=== PATIENT | female | born 1970 | race Caucasian/White ===

== ENCOUNTER 2018-07-15 15:12 | Inpatient (IN) | payer OTHER ==
--- NOTE | 2018-07-15 15:16 | PDOC ---
Rapid Medical Evaluation Time Seen by Provider: 07/15/18 15:15 Medical Evaluation: Allergies Allergy/AdvReac Type Severity Reaction Status Date / Time No Known Allergies Allergy Verified 11/26/14 10:03 07/15/18 15:15 I have performed a brief in-person evaluation of this patient. The patient presents with a chief complaint of:dizziness w/ chest discomfort today. No h/o same. Denies pmhx Pertinent physical exam findings:Tachy to 114, clear chest/lungs otherwise I have ordered the following:ekg/cxr/labs The patient will proceed to the ED for further evaluation 07/15/18 15:29 Discharge Disposition - Diagnosis Dizziness - Discharge Dispostion Condition at time of disposition: Stable - Referrals Referrals: Boyd William [Primary Care Provider] - - Patient Instructions - Post Discharge Activity
[2018-07-15 15:20] VITALS: BMI 42.5
[2018-07-15 15:58] LABS: BASO % 0.6 % (0-2.0); EOS % 0.6 % (0-4.5); HEMATOCRIT 37.9 % (32.4-45.2); HEMOGLOBIN 12.8 GM/dL (10.7-15.3); LYMPH % 15.5 % (8-40); MCH 25.6 pg (25.7-33.7); MCHC 33.8 g/dl (32.0-36.0); MEAN CELL VOLUME 75.7 fl (80-96); MEAN PLT VOLUME 9.3 fl (7.5-11.1); MONO % 6.2 % (3.8-10.2); NEUT % 77.1 % (42.8-82.8); PLATELET COUNT 312 K/MM3 (134-434); RBC 5.01 M/mm3 (3.60-5.2); RDW 15.5 % (11.6-15.6); WHITE BLOOD COUNT 9.9 K/mm3 (4.0-10.0)
[2018-07-15 16:06] LABS: URINE APPEARANCE CLEAR; URINE BILIRUBIN NEGATIVE (<2.0 mg/dL); URINE COLOR STRAW; URINE GLUCOSE (UA) NEGATIVE (NEGATIVE); URINE KETONE NEGATIVE (NEGATIVE); URINE LEUK ESTERASE NEGATIVE (NEGATIVE); URINE NITRITE NEGATIVE (NEGATIVE); URINE PROTEIN NEGATIVE (NEGATIVE); URINE UROBILINOGEN NEGATIVE mg/dL (0.2-1.0)
[2018-07-15 16:07] LABS: HCG,QUALITATIVE URINE Negative
[2018-07-15 16:16] LABS: ALBUMIN 3.5 g/dl (3.4-5.0); ALK PHOS 97 U/L (45-117); ANION GAP 11 MMOL/L (8-16); BILIRUBIN,TOTAL 0.4 mg/dL (0.2-1); BLOOD UREA NITROGEN 7 mg/dL (7-18); CALCIUM 8.2 mg/dL (8.5-10.1); CHLORIDE 105 mmol/L (98-107); CO2 22 mmol/L (21-32); CREATININE 1.1 mg/dL (0.55-1.3); GLUCOSE,RANDOM 140 mg/dL (74-106); POTASSIUM 3.7 mmol/L (3.5-5.1); SGOT/AST 15 U/L (15-37); SGPT/ALT 21 U/L (13-61); SODIUM 138 mmol/L (136-145); TOT PROT 7.1 g/dl (6.4-8.2)
--- NOTE | 2018-07-15 16:17 | PDOC ---
History of Present Illness - General Chief Complaint: Lightheaded Stated Complaint: Lightheaded/CHEST PAIN Time Seen by Provider: 07/15/18 15:15 History Source: Patient Exam Limitations: No Limitations - History of Present Illness Initial Comments: 07/15/18 16:23 48f with remote pmh of asthma and recent left ankle sprain presents to the ED after sensation of heaviness in the face and chest that started suddenly 2 hours ago. Never had this before. Denies chest pain, headache, change in vision, shortness of breath, hemoptysis , recent surgery, no h/o malignancy or being recently bedridden 07/15/18 16:28 Past History - Past Medical History Allergies/Adverse Reactions: Allergies Allergy/AdvReac Type Severity Reaction Status Date / Time No Known Allergies Allergy Verified 11/26/14 10:03 Home Medications: Ambulatory Orders NK [No Known Home Medication] 07/15/18 COPD: No Disorders: No Kidney Stones: No - Immunization History Immunization Up to Date: No - Suicide/Smoking/Psychosocial Hx Smoking Status: No Smoking History: Never smoked Have you smoked in the past 12 months: No Number of Cigarettes Smoked Daily: 0 Information on smoking cessation initiated: No Hx Alcohol Use: No Drug/Substance Use Hx: No Review of Systems - Review of Systems Able to Perform ROS?: Yes Is the patient limited R[place]an proficient: No Constitutional: No: Symptoms Reported HEENTM: No: Symptoms Reported Respiratory: No: Symptoms reported Cardiac (ROS): No: Symptoms Reported ABD/GI: No: Symptoms Reported : No: Symptoms Reported Musculoskeletal: No: Symptoms Reported Integumentary: No: Symptoms Reported Neurological: No: Symptoms reported *Physical Exam - Vital Signs Last Vital Signs Temp Pulse Resp BP Pulse Ox 97.9 F 114 H 18 139/83 98 07/15/18 15:15 07/15/18 15:15 07/15/18 15:15 07/15/18 15:15 07/15/18 15:15 - Physical Exam General Appearance: Yes: Nourished, Appropriately Dressed. No: Apparent Distress HEENT: positive: EOMI, NATHAN, Normal ENT Inspection Respiratory/Chest: positive: Lungs Clear, Normal Breath Sounds. negative: Chest Tender, Respiratory Distress Cardiovascular: positive: Regular Rhythm, S1, S2, Tachycardia Female Pelvic Exam: positive: normal external exam Gastrointestinal/Abdominal: positive: Normal Bowel Sounds, Flat, Soft. negative : Tender Musculoskeletal: positive: Normal Inspection, CVA Tenderness Extremity: positive: Normal Capillary Refill, Normal Inspection, Normal Range of Motion Integumentary: positive: Normal Color, Dry, Warm Neurologic: positive: Fully Oriented, Alert, Normal Mood/Affect, Normal Response , Motor Strength 5/5 Moderate Sedation - Procedure Monitoring Vital Signs: Procedure Monitoring Vital Signs Temperature 97.9 F 07/15/18 15:15 Pulse Rate 114 H 07/15/18 15:15 Respiratory Rate 18 07/15/18 15:15 Blood Pressure 139/83 07/15/18 15:15 O2 Sat by Pulse Oximetry (%) 98 07/15/18 15:15 ED Treatment Course - LABORATORY CBC & Chemistry Diagram: 07/15/18 15:32 07/15/18 15:32 - ADDITIONAL ORDERS Additional order review: Laboratory Results 07/15/18 07/15/18 15:32 15:29 Sodium 138 Potassium 3.7 Chloride 105 Carbon Dioxide 22 Anion Gap 11 BUN 7 Creatinine 1.1 Creat Clearance w eGFR 53.24 Random Glucose 140 H Calcium 8.2 L Total Bilirubin 0.4 AST 15 ALT 21 Alkaline Phosphatase 97 Creatine Kinase 124 Troponin I < 0.02 Total Protein 7.1 Albumin 3.5 Urine HCG, Qual Negative 07/15/18 15:32 RBC 5.01 MCV 75.7 L MCHC 33.8 RDW 15.5 D MPV 9.3 Neutrophils % 77.1 Lymphocytes % 15.5 D Monocytes % 6.2 Eosinophils % 0.6 Basophils % 0.6 Medical Decision Making - Medical Decision Making 07/15/18 16:40 48f with tachycardia and feeling of heaviness in the chest PE vs atypical chest pain/NM vs BPPV Well's score for PE 1.5. *DC/Admit/Observation/Transfer Diagnosis at time of Disposition: Dizziness - Discharge Dispostion Condition at time of disposition: Stable - Referrals Referrals: Boyd William [Primary Care Provider] - - Patient Instructions - Post Discharge Activity
[2018-07-15] MEDS ORDERED: SODIUM CHLORIDE 1,000 ML IV STA (17:40)
--- NOTE | 2018-07-15 18:04 | PDOC ---
Attending Attestation - Resident Resident Name: Maurice Castañeda - ED Attending Attestation I have performed the following: I have examined & evaluated the patient, The case was reviewed & discussed with the resident, I agree w/resident's findings & plan, Exceptions are as noted - HPI HPI: 07/15/18 18:52 The patient is a 48 year old female, with no significant past medical history, who presents to the emergency department with 2 episodes of near syncope. Patient notes associated chest tightness, palpitations and feels like she is "waving from side to side." She describes her symptoms like she is going to pass out. She reports she has had 3 episodes of these symptoms since last night , the first when walking in the supermarket, the second while getting out of the car, the third while walking to the bathroom in the ED. Denies room spinning , headache, stiff neck, focal weakness/numbness, nausea, vomiting, SOB, abd pain , urinary sxs, dysuria, frequency, urgency or hematuria. Allergies: NKDA Primary Care Physician: Dr. William - Physicial Exam PE: 07/15/18 18:54 GENERAL: Awake, alert, and fully oriented, in no acute distress HEAD: No signs of trauma EYES: PERRLA, EOMI, sclera anicteric, conjunctiva clear. No proptosis. ENT: Hearing grossly normal, nares patent, oropharynx clear without exudates. Moist mucosa NECK: Normal ROM, supple, no lymphadenopathy, JVD, or masses LUNGS: Breath sounds equal, clear to auscultation bilaterally. No wheezes, and no crackles HEART: Tachycardic to 110, normal S1 and S2, no murmurs, rubs or gallops ABDOMEN: Soft, nontender, normoactive bowel sounds. No guarding, no rebound. No masses EXTREMITIES: Normal range of motion, no edema. No cords, erythema, or tenderness NEUROLOGICAL: Normal speech, cranial nerves intact, 5/5 strength in all 4 extremities, normal sensation to light touch in all 4 extremities, normal cerebellar exam, normal gait, normal tone SKIN: Warm, Dry, normal turgor, no rashes or lesions noted. - Medical Decision Making 07/15/18 18:57 48yo F presents to the ED with 3 pre-syncopal episodes a/w chest tightness, palpitations. Vitals with tachycardia. Exam wnl. EKG with PACs which may explain palpitations. DDx includes but not limited to arrhythmia vs PE vs thyroid d/o vs ACS. Plan: -labs including tropx2, dimer, TSH -UPT -CXR -IVF -reassess Heart Score/ECG Review #1 07/15/18 18:02 Twelve-lead EKG was performed and reviewed by me. Sinus tachycardia, rate 116. + PACs. No ST elevations. T wave flattening in V3 to V6.
--- NOTE | 2018-07-15 19:36 | PDOC ---
*Physical Exam - Vital Signs Last Vital Signs Temp Pulse Resp BP Pulse Ox 97.9 F 114 H 18 139/83 98 07/15/18 15:15 07/15/18 15:15 07/15/18 15:15 07/15/18 15:15 07/15/18 15:15 ED Treatment Course - LABORATORY CBC & Chemistry Diagram: 07/15/18 15:32 07/15/18 15:32 - ADDITIONAL ORDERS Additional order review: Laboratory Results 07/15/18 07/15/18 07/15/18 18:49 18:00 18:00 D-Dimer 419 Sodium Potassium Chloride Carbon Dioxide Anion Gap BUN Creatinine Creat Clearance w eGFR Random Glucose Calcium Total Bilirubin AST ALT Alkaline Phosphatase Creatine Kinase Troponin I < 0.02 Total Protein Albumin TSH 1.10 Urine Color Urine Appearance Urine pH Ur Specific Mccormick Urine Protein Urine Glucose (UA) Urine Ketones Urine Blood Urine Nitrite Urine Bilirubin Urine Urobilinogen Ur Leukocyte Esterase Urine HCG, Qual 07/15/18 07/15/18 15:32 15:29 D-Dimer Sodium 138 Potassium 3.7 Chloride 105 Carbon Dioxide 22 Anion Gap 11 BUN 7 Creatinine 1.1 Creat Clearance w eGFR 53.24 Random Glucose 140 H Calcium 8.2 L Total Bilirubin 0.4 AST 15 ALT 21 Alkaline Phosphatase 97 Creatine Kinase 124 Troponin I < 0.02 Total Protein 7.1 Albumin 3.5 TSH Urine Color Straw Urine Appearance Clear Urine pH 5.0 Ur Specific Mccormick 1.009 L Urine Protein Negative Urine Glucose (UA) Negative Urine Ketones Negative Urine Blood Negative Urine Nitrite Negative Urine Bilirubin Negative Urine Urobilinogen Negative Ur Leukocyte Esterase Negative Urine HCG, Qual Negative 07/15/18 15:32 RBC 5.01 MCV 75.7 L MCHC 33.8 RDW 15.5 D MPV 9.3 Neutrophils % 77.1 Lymphocytes % 15.5 D Monocytes % 6.2 Eosinophils % 0.6 Basophils % 0.6 - Medications Given in the ED: ED Medications Discontinued Medications Generic Name Dose Route Start Last Admin Trade Name Freq PRN Reason Stop Dose Admin Sodium Chloride 1,000 mls @ 1,000 mls/hr 07/15/18 17:40 07/15/18 18:04 Normal Saline - IV 07/15/18 18:39 1,000 mls/hr ASDIR STA Administration Medical Decision Making - Medical Decision Making 07/15/18 19:37 Mariya Ye is a 48yo woman with no pertinent medical history who presents with tachycardia and feeling of lightheadedness along with feeling of heaviness in her chest and face since yesterday. - Workup has included CBC, chemistry, d-dimer, EKG, trop, TSH - Labs reviewed, unremarkable. D-dimer negative (419), trop negative, TSH 1.10, UA negative - EKG reviewed; sinus tachycardia with PACs, no ST elevations or t-wave changes - Reassessed Ms Ye. Reports she continues to feel lightheaded. States her chest feels tight and heavy, as though she "ran a marathon" after walking a few steps. - Will recheck vitals - Microblog sent to med/surg for tele obs admission given continued symptoms 07/15/18 20:20 - CXR ordered for admission and to evaluate for pulmonary abnormalities or cardiomegaly - Spoke to Dr Laguna for admission; will accept to obs. Requested consults for Dr Michel and Dr Foote - Vitals rechecked. HR now 85. 07/15/18 20:50 - CXR without abnormalities - Waiting for bed upstairs Discussed with Dr Robertson. Tiffany Hardy PGY1 *DC/Admit/Observation/Transfer Diagnosis at time of Disposition: Dizziness - Discharge Dispostion Condition at time of disposition: Stable Decision to Admit order: Yes - Referrals - Patient Instructions - Post Discharge Activity
[2018-07-15] MEDS ORDERED: ACETAMINOPHEN 325 MG TABLET (FP) PO PRN (20:41)
--- NOTE | 2018-07-15 21:16 | HP ---
Admitting History and Physical - Admission History of Present Illness: The patient is a 48 year old female, with no significant past medical history, who presents to the emergency department with 2 episodes of near syncope. Patient notes associated chest tightness, palpitations and feels like she is "waving from side to side." She describes her symptoms like she is going to pass out. She reports she has had 3 episodes of these symptoms since last night , the first when walking in the supermarket, the second while getting out of the car, the third while walking to the bathroom in the ED. Denies room spinning , headache, stiff neck, focal weakness/numbness, nausea, vomiting, SOB, abd pain , urinary sxs, dysuria, frequency, urgency or hematuria. on no meds/ no allergies History Source: Patient Limitations to Obtaining History: No Limitations - Past Medical History Pulmonary: Yes: Asthma. No: O2 Dependent, Previously Intubated ...: No - Smoking History Smoking history: Never smoked Have you smoked in the past 12 months: No Aproximately how many cigarettes per day: 0 - Alcohol/Substance Use Hx Alcohol Use: No - Social History ADL: Independent Home Medications - Allergies Allergies/Adverse Reactions: Allergies Allergy/AdvReac Type Severity Reaction Status Date / Time No Known Allergies Allergy Verified 11/26/14 10:03 - Home Medications Home Medications: Ambulatory Orders NK [No Known Home Medication] 07/15/18 Physical Examination Vital Signs: Vital Signs Temperature 98.0 F 07/15/18 20:10 Pulse Rate 87 07/15/18 20:10 Respiratory Rate 18 07/15/18 15:15 Blood Pressure 121/75 07/15/18 20:10 O2 Sat by Pulse Oximetry (%) 99 07/15/18 20:10 Labs: CBC, BMP 07/15/18 15:32 07/15/18 15:32
[2018-07-15] MEDS: MONTELUKAST NA 10 MG TABLET PO SCH (23:39)
--- NOTE | 2018-07-16 02:24 | HOSP ---
Subjective - Review of Symptoms Subjective: Called by nurse to evaluate EKG. Patient was having increasingly frequent episodes of non-sustained v tach on electronic device monitor. Latest event lasting 10 seconds. Symptomatic with palpitations and SOB. On initial exam markedly tachycardic. Lungs clear. Ordered stat CMP, Phos, Mg, Troponin, repeat EKG. Tachycardia self-resolved during encounter. Vitals stable. Physical Examination Vital Signs: Vital Signs Temperature 98.0 F 07/15/18 20:10 Pulse Rate 87 07/15/18 20:10 Respiratory Rate 18 07/15/18 15:15 Blood Pressure 121/75 07/15/18 20:10 O2 Sat by Pulse Oximetry (%) 98 07/15/18 21:17 Labs: CBC, BMP 07/15/18 15:32 07/15/18 15:32
[2018-07-16 02:51] LABS: ALBUMIN 3.4 g/dl (3.4-5.0); ALK PHOS 93 U/L (45-117); ANION GAP 6 MMOL/L (8-16); BILIRUBIN,TOTAL 0.4 mg/dL (0.2-1); BLOOD UREA NITROGEN 7 mg/dL (7-18); CALCIUM 7.9 mg/dL (8.5-10.1); CHLORIDE 108 mmol/L (98-107); CO2 26 mmol/L (21-32); CREATININE 1.1 mg/dL (0.55-1.3); GLUCOSE,RANDOM 141 mg/dL (74-106); MAGNESIUM 1.8 mg/dL (1.8-2.4); PHOSPHOROUS 3.5 mg/dL (2.5-4.9); POTASSIUM 3.5 mmol/L (3.5-5.1); SGOT/AST 15 U/L (15-37); SGPT/ALT 19 U/L (13-61); SODIUM 141 mmol/L (136-145); TOT PROT 6.8 g/dl (6.4-8.2)
[2018-07-16 06:18] LABS: BASO % 0.8 % (0-2.0); EOS % 1.6 % (0-4.5); HEMATOCRIT 35.8 % (32.4-45.2); HEMOGLOBIN 11.3 GM/dL (10.7-15.3); LYMPH % 20.7 % (8-40); MCH 24.3 pg (25.7-33.7); MCHC 31.6 g/dl (32.0-36.0); MEAN CELL VOLUME 76.8 fl (80-96); MEAN PLT VOLUME 8.7 fl (7.5-11.1); MONO % 6.8 % (3.8-10.2); NEUT % 70.1 % (42.8-82.8); PLATELET COUNT 268 K/MM3 (134-434); RBC 4.66 M/mm3 (3.60-5.2); RDW 15.3 % (11.6-15.6); WHITE BLOOD COUNT 7.6 K/mm3 (4.0-10.0)
[2018-07-16 06:58] LABS: ALBUMIN 3.2 g/dl (3.4-5.0); ALK PHOS 78 U/L (45-117); ANION GAP 7 MMOL/L (8-16); BILIRUBIN,TOTAL 0.4 mg/dL (0.2-1); BLOOD UREA NITROGEN 8 mg/dL (7-18); CALCIUM 8.1 mg/dL (8.5-10.1); CHLORIDE 108 mmol/L (98-107); CHOLESTEROL 181 mg/dL (50-200); CO2 25 mmol/L (21-32); GLUCOSE,RANDOM 109 mg/dL (74-106); HDL CHOLESTEROL 38 mg/dL (40-60); POTASSIUM 4.2 mmol/L (3.5-5.1); SGOT/AST 11 U/L (15-37); SGPT/ALT 18 U/L (13-61); SODIUM 141 mmol/L (136-145); TOT PROT 6.1 g/dl (6.4-8.2); TRIGLYCERIDES 136 mg/dL (0-150)
[2018-07-16] MEDS: ALBUTEROL SO4 2.5/IPRATROPIUM 0.5 INH SOL 3 ML VIAL.NEB. NEB SCH ×4 (08:00→20:04)
--- NOTE | 2018-07-16 09:25 | CON.CARD ---
Consult Consult Specialty:: Cardiology Referred by:: Luz Elena Reason for Consultation:: near syncope - History of Present Illness Chief Complaint: near syncope, chest tightness History of Present Illness: 48F no significant PMH p/w lightheadedness, chest tightness, palpitations. Feels like she is going to pass out, had 3 episodes of these symptoms since last night, first when walking in store, second getting out of the car and third while walking to the bathroom while in the ER. Trop neg x 2, neg d- dimer. Overnight had episode of wide complex tachycardia for >30 seconds, unclear if she was symptomatic at the time, she does not remember but thinks she was getting up to go to the bathroom. Has had intermittent chest tightness and episodes of dizziness and fatigue while inpatient. - Past Medical History Pulmonary: Yes: Asthma. No: O2 Dependent, Previously Intubated ...: No - Alcohol/Substance Use Hx Alcohol Use: No - Smoking History Smoking history: Never smoked Have you smoked in the past 12 months: No Aproximately how many cigarettes per day: 0 - Social History ADL: Independent Home Medications - Allergies Allergies/Adverse Reactions: Allergies Allergy/AdvReac Type Severity Reaction Status Date / Time No Known Allergies Allergy Verified 11/26/14 10:03 - Home Medications Home Medications: Ambulatory Orders NK [No Known Home Medication] 07/15/18 Family Disease History - Family Disease History Family Disease History: Heart Disease: Father Review of Systems - Review of Systems Constitutional: reports: Weakness Eyes: reports: No Symptoms HENT: reports: No Symptoms Neck: reports: No Symptoms Cardiovascular: reports: Chest Pain Respiratory: reports: No Symptoms Gastrointestinal: reports: No Symptoms Genitourinary: reports: No Symptoms Musculoskeletal: reports: No Symptoms Integumentary: reports: No Symptoms Neurological: reports: No Symptoms Endocrine: reports: No Symptoms Hematology/Lymphatic: reports: No Symptoms Psychiatric: reports: No Symptoms Vital Signs: Vital Signs Temperature 98.6 F 07/16/18 04:41 Pulse Rate 90 07/16/18 04:41 Respiratory Rate 18 07/16/18 04:41 Blood Pressure 131/74 07/16/18 04:41 O2 Sat by Pulse Oximetry (%) 98 07/15/18 22:05 Constitutional: Yes: Well Nourished, No Distress, Calm Eyes: Yes: Conjunctiva Clear, EOM Intact HENT: Yes: Atraumatic, Normocephalic Neck: Yes: Supple, Trachea Midline Respiratory: Yes: Regular, CTA Bilaterally Gastrointestinal: Yes: Normal Bowel Sounds, Soft Cardiovascular: Yes: Regular Rate and Rhythm JVD: No Carotid Bruit: No Heart Sounds: Yes: S1, S2 Musculoskeletal: No: Back Pain Extremities: No: Cold Edema: No Peripheral Pulses WNL: No Peripheral Pulses: 2+ Left Carotid, 2+ Right Carotid, 2+ Left Doralis Pedis, 2+ Right Dorsalis Pedis Integumentary: No: Jaundice Neurological: Yes: Alert, Oriented Psychiatric: Yes: Alert, Oriented - Other Data Labs, Other Data: CBC, BMP 07/16/18 05:30 07/16/18 05:30 Troponin, BNP 07/15/18 07/15/18 07/16/18 15:32 18:49 02:15 Troponin I < 0.02 < 0.02 < 0.02 Troponin, BNP 07/15/18 07/15/18 07/16/18 15:32 18:49 02:15 Troponin I < 0.02 < 0.02 < 0.02 Assessment/Plan carotid dopplers: no hemodynamically signfiicant stenosis EKG:sinus tachycardia, PVC Tele: sinus, PVCs, wide complex tachycardia >30 seconds 48F no significant PMH p/w near syncope, chest tightness, wide complex tachycardia on tele Wide complex tachycardia, near syncope, chest tightness - likely ventricular tachycardia vs SVT with aberrancy - trop neg x 2 - echo pending, history/exam not consistent with CHF although EF not known - discussed case with Dr. Topher Castro, EP, [facility], transfer for likely EP study, cardiac cath, cardiac MRI, patient is agreeable to transfer
[2018-07-16] MEDS: ASPIRIN COATED 81 MG TABLET.EC PO SCH (09:31)
--- NOTE | 2018-07-16 11:32 | CON.NEURO ---
Consult Consult Specialty:: Neurology Referred by:: Dr. Laguna Reason for Consultation:: Near Syncope - History of Present Illness Chief Complaint: I felt like I was going to pass out History of Present Illness: 48F no significant PMH p/w lightheadedness, chest tightness, palpitations. Feels like she is going to pass out, had 3 episodes of these symptoms since last night, first when walking in store, second getting out of the car and third while walking to the bathroom while in the ER. Trop neg x 2, neg d- dimer. Overnight had episode of wide complex tachycardia for >30 seconds, unclear if she was symptomatic at the time, she does not remember but thinks she was getting up to go to the bathroom. During 2 of the episodes vision when etienne though she never actually lost consciousness. No urinary incontinence Has had intermittent chest tightness and episodes of dizziness and fatigue while inpatient. - History Source History Provided By: Patient, Medical Record Limitations to Obtaining History: No Limitations - Past Medical History Pulmonary: Yes: Asthma. No: O2 Dependent, Previously Intubated ...: No - Alcohol/Substance Use Hx Alcohol Use: No - Smoking History Smoking history: Never smoked Have you smoked in the past 12 months: No Aproximately how many cigarettes per day: 0 - Social History ADL: Independent Home Medications - Allergies Allergies/Adverse Reactions: Allergies Allergy/AdvReac Type Severity Reaction Status Date / Time No Known Allergies Allergy Verified 11/26/14 10:03 - Home Medications Home Medications: Ambulatory Orders NK [No Known Home Medication] 07/15/18 Family Disease History - Family Disease History Family Disease History: Heart Disease: Father Physical Exam-Neuro Vital Signs: Vital Signs Temperature 98 F 07/16/18 09:30 Pulse Rate 80 07/16/18 09:30 Respiratory Rate 18 07/16/18 09:30 Blood Pressure 121/74 07/16/18 09:30 O2 Sat by Pulse Oximetry (%) 98 07/15/18 22:05 Constitutional: Yes: Obese Labs: CBC, BMP 07/16/18 05:30 07/16/18 05:30 - Neuro Exam Level Of Consciousness: Yes: Alert, Oriented to Person, Oriented to Place, Oriented to Time Eyes: Yes: NATHAN Speech: WNL Cranial Nerves II-XII Intact: Yes DTR's: 2+ Left Bicep, 2+ Right Bicep, 2+ Left Tricep, 2+ Right Tricep, 2+ Left Brachioradialis, 2+ Right Brachioradialis, 2+ Left Achilles, 2+ Right Achilles Babinski: Absent Response to light touch: Normal Motor Strength: 5/5: Left Arm, Right Arm, Left Leg, Right Leg Gait: Deferred (broken foot) Imaging - Results Ultrasound: Report Reviewed (carotid duplex mild placque but no hdsl)
[2018-07-16] MEDS: MOMETASONE FUROATE 110 MCG/IH INHALER IH SCH ×2 (12:00→21:18)
--- NOTE | 2018-07-16 12:57 | EKG ---
Test Reason : Blood Pressure : / mmHG Vent. Rate : 107 BPM Atrial Rate : 107 BPM P-R Int : 136 ms QRS Dur : 072 ms QT Int : 346 ms P-R-T Axes : 040 042 008 degrees QTc Int : 461 ms POOR DATA QUALITY, INTERPRETATION MAY BE ADVERSELY AFFECTED SINUS TACHYCARDIA WITH OCCASIONAL PREMATURE VENTRICULAR COMPLEXES LOW VOLTAGE QRS NONSPECIFIC ST ABNORMALITY ABNORMAL ECG WHEN COMPARED WITH ECG OF 16-JUL-2018 02:20, PREMATURE VENTRICULAR COMPLEXES ARE NOW PRESENT Confirmed by Myron Zavaleta ([id number]) on 07/16/2018 12:56:56 PM Referred By: Confirmed By:Myron Zavaleta
--- NOTE | 2018-07-16 12:57 | EKG ---
Test Reason : Blood Pressure : / mmHG Vent. Rate : 090 BPM Atrial Rate : 090 BPM P-R Int : 112 ms QRS Dur : 076 ms QT Int : 392 ms P-R-T Axes : 051 057 016 degrees QTc Int : 479 ms NORMAL SINUS RHYTHM NORMAL ECG WHEN COMPARED WITH ECG OF 15-JUL-2018 15:17, ABERRANT CONDUCTION IS NO LONGER PRESENT Confirmed by Myron Zavaleta ([id number]) on 07/16/2018 12:56:59 PM Referred By: Confirmed By:Myron Zavaleta
--- NOTE | 2018-07-16 12:58 | EKG ---
Test Reason : Blood Pressure : / mmHG Vent. Rate : 116 BPM Atrial Rate : 116 BPM P-R Int : 118 ms QRS Dur : 082 ms QT Int : 330 ms P-R-T Axes : 041 049 007 degrees QTc Int : 458 ms SINUS TACHYCARDIA WITH PREMATURE ATRIAL COMPLEXES WITH ABERRANT CONDUCTION CANNOT RULE OUT ANTERIOR INFARCT , AGE UNDETERMINED ABNORMAL ECG NO PREVIOUS ECGS AVAILABLE Confirmed by Myron Zavaleta ([id number]) on 07/16/2018 12:58:11 PM Referred By: Confirmed By:Myron Zavaleta
--- NOTE | 2018-07-16 13:18 | ECHO ---
Name: ALEXANDRA RUTHERFORD Exam:Adult Echocardiogram Study Date: 07/16/2018 08:19 AM Age: 48 yrs Reason For Study: SYNCOPE Height: 68 in Weight: 280 lb BSA: 2.4 m2 MMode/2D Measurements & Calculations IVSd: 1.0 cm Ao root diam: 2.6 cm LVIDd: 3.9 cm ACS: 1.9 cm LVIDs: 2.9 cm LVPWd: 1.4 cm EDV(Teich): 66.1 ml LVOT diam: 2.1 cm ESV(Teich): 32.0 ml Doppler Measurements & Calculations Med Peak E' Yoshi: 8.1 cm/sec Lat Peak E' Yoshi: 6.7 cm/sec Procedure A two-dimensional transthoracic echocardiogram with color flow and Doppler was performed. The study w as technically difficult with many images being suboptimal in quality. The patient was in normal sinus r hythm during the exam. Left Ventricle The left ventricle is normal in size. Left ventricular systolic function is normal. Right Ventricle The right ventricle is not well visualized. The right ventricular systolic function is grossly normal . Atria The left atrium is mildly dilated. Right atrial size is normal. Mitral Valve The mitral valve is normal. There is no mitral valve stenosis. There is no mitral regurgitation noted . Tricuspid Valve The tricuspid valve is normal. No tricuspid regurgitation. Aortic Valve The aortic valve is trileaflet. The aortic valve opens well. No hemodynamically significant valvular aortic stenosis. No aortic regurgitation is present. Pulmonic Valve The pulmonic valve is not well visualized. The pulmonic valve is not well seen, but is grossly normal . There is no pulmonic valvular regurgitation. Great Vessels The aortic root is normal size. Pericardium/Pleura There is no pericardial effusion. Interpretation Summary The study was technically difficult with many images being suboptimal in quality. Left ventricular systolic function is normal. The right ventricular systolic function is grossly normal. The left atrium is mildly dilated. The aortic valve opens well. There is no pericardial effusion. MD Dago Reveles 07/16/2018 01:17 PM
[2018-07-16] MEDS ORDERED: MAGNESIUM SULF 50% (8.12 MEQ/2 ML-1 GM VIAL) IVPB ONE (14:15)
--- NOTE | 2018-07-16 14:33 | RAPID ---
Physical Examination Vital Signs: Vital Signs Temperature 98 F 07/16/18 09:30 Pulse Rate 80 07/16/18 09:30 Respiratory Rate 18 07/16/18 09:30 Blood Pressure 121/74 07/16/18 09:30 O2 Sat by Pulse Oximetry (%) 100 07/16/18 09:00 Findings/Remarks: Patient evaluated for 30 second episodes of vtach. Patient admitted to the hospital for dizziness and episodes of vtach. Patient currently being transferred to [facility] for EP study. Patient reports she feels flushed and dizzy. Vtach present for 30 seconds on tele monitor. General: no acute distress, diaphoretic Heart: tachycardic, no JVD noted Pulse: 180, decreased to 140 Tachycardia 2/2 to vtach vs SVT with abberancy - patient currently being transfered to [facility] for EP studies - M.8, ordered 2 gm IV magnesium to bring up Mg - will monitor without medications as to not change EP results - Dr. Agrawal present for rapid, will speak with [facility] Labs: CBC, BMP 07/16/18 05:30 07/16/18 05:30
[2018-07-16] MEDS ORDERED: METOPROLOL TARTRATE 25 MG TABLET (FP) PO SCH (14:45)
[2018-07-16] MEDS: MONTELUKAST NA 10 MG TABLET PO SCH (21:17)
[2018-07-16 23:57] LABS: ANION GAP 8 MMOL/L (8-16); BLOOD UREA NITROGEN 8 mg/dL (7-18); CALCIUM 8.3 mg/dL (8.5-10.1); CHLORIDE 107 mmol/L (98-107); CO2 25 mmol/L (21-32); CREATININE 0.9 mg/dL (0.55-1.3); GLUCOSE,RANDOM 101 mg/dL (74-106); POTASSIUM 3.8 mmol/L (3.5-5.1); SODIUM 140 mmol/L (136-145)
[2018-07-17 07:41] LABS: BASO % 0.3 % (0-2.0); EOS % 2.1 % (0-4.5); HEMATOCRIT 39.6 % (32.4-45.2); HEMOGLOBIN 12.4 GM/dL (10.7-15.3); LYMPH % 28.9 % (8-40); MCH 24.2 pg (25.7-33.7); MCHC 31.4 g/dl (32.0-36.0); MEAN PLT VOLUME 8.9 fl (7.5-11.1); MONO % 6.8 % (3.8-10.2); NEUT % 61.9 % (42.8-82.8); PLATELET COUNT 312 K/MM3 (134-434); RBC 5.14 M/mm3 (3.60-5.2); RDW 15.8 % (11.6-15.6); WHITE BLOOD COUNT 9.8 K/mm3 (4.0-10.0)
[2018-07-17] MEDS: ALBUTEROL SO4 2.5/IPRATROPIUM 0.5 INH SOL 3 ML VIAL.NEB. NEB SCH ×4 (07:56→20:27)
[2018-07-17 08:20] LABS: ANION GAP 8 MMOL/L (8-16); BLOOD UREA NITROGEN 9 mg/dL (7-18); CALCIUM 8.7 mg/dL (8.5-10.1); CHLORIDE 106 mmol/L (98-107); CO2 25 mmol/L (21-32); GLUCOSE,RANDOM 102 mg/dL (74-106); MAGNESIUM 2.4 mg/dL (1.8-2.4); POTASSIUM 4.3 mmol/L (3.5-5.1); SODIUM 139 mmol/L (136-145)
[2018-07-17] MEDS: ASPIRIN COATED 81 MG TABLET.EC PO SCH (09:23)
--- NOTE | 2018-07-17 09:32 | PN ---
Progress Note (short form) - Note Progress Note: Chief Complaint: near syncope, chest tightness s: feels better this morning, fewer episodes of palps Current Medications Acetaminophen (Tylenol -) 650 mg PO Q4H PRN PRN Reason: PAIN LEVEL 1-5 Albuterol/Ipratropium (Duoneb -) 1 amp NEB RQID [facility] Last Admin: 07/17/18 07:56 Dose: 1 amp Aspirin (Ecotrin -) 81 mg PO DAILY [facility] Last Admin: 07/17/18 09:23 Dose: 81 mg Metoprolol Succinate (Toprol Xl -) 50 mg PO BID [facility] Last Admin: 07/17/18 09:23 Dose: 50 mg Mometasone Furoate (Asmanex 110mcg -) 1 puff IH BID [facility] Last Admin: 07/16/18 21:18 Dose: Not Given Montelukast Sodium (Singulair -) 10 mg PO HS [facility] Last Admin: 07/16/18 21:17 Dose: 10 mg Vital Signs: Vital Signs Period Temp Pulse Resp BP Sys/[place] Pulse Ox Last 24 Hr 97.9 F-98.8 F 59-96 18-20 103-132/58-77 100 Constitutional: Yes: Well Nourished, No Distress, Calm Eyes: Yes: Conjunctiva Clear, EOM Intact HENT: Yes: Atraumatic, Normocephalic Neck: Yes: Supple, Trachea Midline Respiratory: Yes: Regular, CTA Bilaterally Gastrointestinal: Yes: Normal Bowel Sounds, Soft Cardiovascular: Yes: Regular Rate and Rhythm JVD: No Carotid Bruit: No Heart Sounds: Yes: S1, S2 Musculoskeletal: No: Back Pain Extremities: No: Cold Edema: No Peripheral Pulses WNL: No Peripheral Pulses: 2+ Left Carotid, 2+ Right Carotid, 2+ Left Doralis Pedis, 2+ Right Dorsalis Pedis Integumentary: No: Jaundice Neurological: Yes: Alert, Oriented Psychiatric: Yes: Alert, Oriented Assessment/Plan carotid dopplers: no hemodynamically signfiicant stenosis EKG:sinus tachycardia, PVC echo 07/2018 tds, LV nl size/function, RV grossly nl, mild LA dilation Tele: sinus, PVCs, ten episodes of wide complex tachycardia 20-30 seconds yesterday afternoon/evening last at 21:15 48F no significant PMH p/w near syncope, chest tightness, wide complex tachycardia on tele Wide complex tachycardia, near syncope, chest tightness - likely ventricular tachycardia vs SVT with aberrancy - trop neg x 2 - echo shows nl EF - episodes less frequent with metoprolol succinate 50 mg BID, continue - awaiting transfer to [facility] for likely EP study, cardiac cath, cardiac MRI
--- NOTE | 2018-07-17 15:46 | PN ---
Progress Note (short form) - Note Progress Note: obese female in bed comfortable no reoccurance of palpitaions / or chest discomfort feeling tired / fatigued -- probably 2/2 to BBlocker Vital Signs Period Temp Pulse Resp BP Sys/[place] Pulse Ox Last 24 Hr 97.9 F-98.0 F 59-92 18-20 103-131/55-77 100-100 neck supple heart S1/S2 lungs clear bilat abd obese / soft/ non tender ext no edema Laboratory Last Values WBC 9.8 K/mm3 (4.0-10.0) 07/17/18 07:00 RBC 5.14 M/mm3 (3.60-5.2) 07/17/18 07:00 Hgb 12.4 GM/dL (10.7-15.3) 07/17/18 07:00 Hct 39.6 % (32.4-45.2) 07/17/18 07:00 MCV 77.0 fl (80-96) L 07/17/18 07:00 MCH 24.2 pg (25.7-33.7) L 07/17/18 07:00 MCHC 31.4 g/dl (32.0-36.0) L 07/17/18 07:00 RDW 15.8 % (11.6-15.6) H 07/17/18 07:00 Plt Count 312 K/MM3 (134-434) 07/17/18 07:00 MPV 8.9 fl (7.5-11.1) 07/17/18 07:00 Absolute Neuts (auto) 6.1 K/mm3 (1.5-8.0) 07/17/18 07:00 Neutrophils % 61.9 % (42.8-82.8) 07/17/18 07:00 Lymphocytes % 28.9 % (8-40) D 07/17/18 07:00 Monocytes % 6.8 % (3.8-10.2) 07/17/18 07:00 Eosinophils % 2.1 % (0-4.5) 07/17/18 07:00 Basophils % 0.3 % (0-2.0) 07/17/18 07:00 Nucleated RBC % 0 % (0-0) 07/17/18 07:00 D-Dimer 419 ng/ml (0-500) 07/15/18 18:00 Sodium 139 mmol/L (136-145) 07/17/18 07:00 Potassium 4.3 mmol/L (3.5-5.1) 07/17/18 07:00 Chloride 106 mmol/L (98-107) 07/17/18 07:00 Carbon Dioxide 25 mmol/L (21-32) 07/17/18 07:00 Anion Gap 8 MMOL/L (8-16) 07/17/18 07:00 BUN 9 mg/dL (7-18) 07/17/18 07:00 Creatinine 1.0 mg/dL (0.55-1.3) 07/17/18 07:00 Creat Clearance w eGFR 59.43 (>60) 07/17/18 07:00 Random Glucose 102 mg/dL (74-106) 07/17/18 07:00 Calcium 8.7 mg/dL (8.5-10.1) 07/17/18 07:00 Phosphorus 3.5 mg/dL (2.5-4.9) 07/16/18 02:15 Magnesium 2.4 mg/dL (1.8-2.4) 07/17/18 07:00 Total Bilirubin 0.4 mg/dL (0.2-1) 07/16/18 05:30 AST 11 U/L (15-37) L 07/16/18 05:30 ALT 18 U/L (13-61) 07/16/18 05:30 Alkaline Phosphatase 78 U/L (45-117) 07/16/18 05:30 Creatine Kinase 124 IU/L (26-192) 07/15/18 15:32 Troponin I < 0.02 ng/ml (0.00-0.05) 07/16/18 02:15 Total Protein 6.1 g/dl (6.4-8.2) L 07/16/18 05:30 Albumin 3.2 g/dl (3.4-5.0) L 07/16/18 05:30 Triglycerides 136 mg/dL (0-150) 07/16/18 05:30 Cholesterol 181 mg/dL (50-200) 07/16/18 05:30 Total LDL Cholesterol 127 mg/dL (5-100) H 07/16/18 05:30 HDL Cholesterol 38 mg/dL (40-60) L 07/16/18 05:30 TSH 1.22 uIU/ml (0.358-3.74) 07/16/18 05:30 Free T4 1.11 ng/dl (0.76-1.46) 07/16/18 05:30 Urine Color Straw 07/15/18 15: Urine Appearance Clear 07/15/18 15: Urine pH 5.0 (5.0-8.0) 07/15/18 15: Ur Specific [place] 1.009 (1.010-1.035) L 07/15/18 15:29 Urine Protein Negative (NEGATIVE) 07/15/18: Urine Glucose (UA) Negative (NEGATIVE) 07/15/18 Urine Ketones Negative (NEGATIVE) 07/15/18 Urine Blood Negative (NEGATIVE) 07/15/18 Urine Nitrite Negative (NEGATIVE) 07/15/18: Urine Bilirubin Negative (<2.0 mg/dL) 07/15/18: Urine Urobilinogen Negative mg/dL (0.2-1.0) 07/15/18 15: Ur Leukocyte Esterase Negative (NEGATIVE) 07/15/18 15: Urine HCG, Qual Negative 07/15/18 goal K > 4.2 mag > 2.0 Active Medications Acetaminophen (Tylenol -) 650 mg PO Q4H PRN PRN Reason: PAIN LEVEL 1-5 Albuterol/Ipratropium (Duoneb -) 1 amp NEB RQID [facility] Last Admin: 07/17/18 11:21 Dose: 1 amp Aspirin (Ecotrin -) 81 mg PO DAILY [facility] Last Admin: 07/17/18 09:23 Dose: 81 mg Metoprolol Succinate (Toprol Xl -) 50 mg PO BID [facility] Last Admin: 07/17/18 09:23 Dose: 50 mg Mometasone Furoate (Asmanex 110mcg -) 1 puff IH BID [facility] Last Admin: 07/16/18 21:18 Dose: Not Given Montelukast Sodium (Singulair -) 10 mg PO HS [facility] Last Admin: 07/16/18 21:17 Dose: 10 mg # wide complex tachycardia VTach ? no hx of previous events echo reports Nl per Cardio no events since last night arrangements in place for transfer to [place] --EP discussed with patient / and son - both at bedside at time of visit # Hx of Asthma on nebulizer / inhaled staroids / singulair clinically has been stable on BBlocker # Obesity discussed weight loss dietary changes /
[2018-07-17 19:31] VITALS: BP 115/51; PULSE 84; TEMP 98.2
[2018-07-17] MEDS: MONTELUKAST NA 10 MG TABLET PO SCH (20:41)
== END 2018-07-17 21:30 | disposition short-term general hospital (02) | DRG 309 ==
LOC: JER 15:12 → JERBED 19:46 → OBSVTOIN 20:42 → J4W 22:42
PROVIDERS: ADMIT Family Medicine; ATTEND Family Medicine
DX: I47.2 Ventricular tachycardia (principal); Z68.41 Body mass index [BMI] 40.0-44.9, adult; R55 Syncope and collapse; J45.909 Unspecified asthma, uncomplicated; E66.9 Obesity, unspecified
CPT/HCPCS: 36415; 71046-TC-FY; 80048; 80053; 80061; 81003; 82550; 83721; 83735; 84100; 84439; 84443; 84484; 84703; 85025; 85379; 93005; 93010; 93306-TC; 93880-TC; 94640; 99284-25; G0378; J7030

== ENCOUNTER 2021-06-20 06:10 | Day surgery (SDC) | payer BC ==
[2021-06-14 15:12] VITALS: BMI 43.7
[2021-06-20] MEDS ORDERED: BUPIVACAINE HCL/PF 0.25% (2.5MG/ML) 10 ML VIAL ONE (07:18)
[2021-06-20] MEDS ORDERED: MIDAZOLAM HCL 2 MG/2 ML SINGLE DOSE VIAL ONE (08:01)
[2021-06-20] MEDS ORDERED: SUCCINYLCHOLINE CHLORIDE 200 MG/10 ML SYRINGE ONE (08:04)
[2021-06-20] MEDS ORDERED: ROCURONIUM BROMIDE 50 MG/5 ML SYRINGE ONE (08:04)
[2021-06-20] MEDS ORDERED: PROPOFOL 20 ML ONE (08:04)
[2021-06-20] MEDS ORDERED: NEOSTIGMINE METHYLSULFATE 0.5 MG/1 ML - 10 ML MDV ONE (09:10)
[2021-06-20] MEDS ORDERED: ACETAMINOPHEN 325 MG TABLET (FP) PO PRN (09:27)
[2021-06-20] MEDS ORDERED: HYDROmorphone HCL/PF 1 MG/ML VIAL IVPUSH PRN (09:28)
[2021-06-20] MEDS ORDERED: LACTATED RINGERS SOLUTION 1,000 ML IV SCH (09:30)
[2021-06-20] MEDS: ONDANSETRON 4 MG/2 ML VIAL IVPUSH PRN (09:35)
[2021-06-20] MEDS ORDERED: ACETAMINOPHEN INJECTION 100 ML IVPB ONE (09:45)
[2021-06-20] MEDS ORDERED: ACETAMINOPHEN 1000 MG/100 ML VIAL IVPB ONE ×2 (09:45→11:00)
[2021-06-20 10:28] LABS: CALCIUM 8.8 mg/dl (8.5-10); HEMATOCRIT 39.3 % (32.4-45.2); HEMOGLOBIN 12.8 GM/dl (10.7-15.3); MCH 26.4 pg (25.7-33.7); MCHC 32.4 g/dl (32.0-36.0); MEAN CELL VOLUME 81.6 fl (80-96); MEAN PLT VOLUME 10.1 fl (7.5-11.1); PLATELET COUNT 214 10^3/uL (134-434); RBC 4.82 M/mm3 (3.60-5.2); RDW 13.2 % (11.6-15.6); WHITE BLOOD COUNT 6.9 K/mm3 (4.0-10.8)
[2021-06-20] MEDS: FAMOTIDINE 20 MG/50 ML IVPB 20 MG/50 ML MG IVPB SCH ×2 (11:27→21:04)
[2021-06-20] MEDS: LISINOPRIL 5 MG TABLET PO SCH (11:27)
[2021-06-20] MEDS: CHOLECALCIFEROL (VIT D3) 1,000 UNIT (25 MCG) TABLET PO SCH (11:27)
[2021-06-20] MEDS: SODIUM CHLORIDE 1,000 ML IV SCH (11:32)
[2021-06-20] MEDS ORDERED: ENOXAPARIN NA (PORCINE) 40 MG/0.4 ML DISP.SYRIN SQ ONE (12:00)
[2021-06-20] MEDS ORDERED: ACETAMINOPHEN 1000 MG/100 ML VIAL IVPB PRN (16:00)
[2021-06-20] MEDS: oxyCODONE HCL 5 MG TABLET PO PRN (21:03)
[2021-06-20] MEDS ORDERED: ATORVASTATIN CA 20 MG TABLET (FP) PO SCH (22:00)
[2021-06-21] MEDS: oxyCODONE HCL 5 MG TABLET PO PRN ×2 (03:53→08:23)
[2021-06-21] MEDS: ONDANSETRON 4 MG/2 ML VIAL IVPUSH PRN (03:59)
[2021-06-21 08:24] VITALS: BP 113/57; PULSE 73; TEMP 98
[2021-06-21] MEDS: CHOLECALCIFEROL (VIT D3) 1,000 UNIT (25 MCG) TABLET PO SCH (09:12)
[2021-06-21] MEDS: FAMOTIDINE 20 MG/50 ML IVPB 20 MG/50 ML MG IVPB SCH (09:12)
[2021-06-21] MEDS: LISINOPRIL 5 MG TABLET PO SCH (09:12)
[2021-06-21] MEDS: SODIUM CHLORIDE 1,000 ML IV SCH (09:13)
== END 2021-06-21 11:19 | disposition home or self-care (01) ==
LOC: FASUSAT 06:10 → FM/S 09:11 → FASUSAT 06-21 11:19
PROVIDERS: ATTEND Surgery
PROC: 0DN64ZZ Release Stomach, Percutaneous Endoscopic Approach (ICD-10-PCS; 2021-06-20)
PROC: 0DP64CZ Removal of Extraluminal Device from Stomach, Percutaneous Endoscopic Approach (ICD-10-PCS; principal; 2021-06-20 08:33)
DX: T85.518A Breakdown (mechanical) of other gastrointestinal prosthetic devices, implants and grafts, initial encounter (principal); R13.10 Dysphagia, unspecified; R11.0 Nausea; Y73.3 Surgical instruments, materials and gastroenterology and urology devices (including sutures) associated with adverse incidents; Y93.89 Activity, other specified; Y92.89 Other specified places as the place of occurrence of the external cause; Z98.84 Bariatric surgery status
CPT/HCPCS: 36415; 80048; 82962; 84703; 85027; 88300-TC; 94010; 94760; J0131

== ENCOUNTER 2021-12-25 11:12 | Emergency (ER) | payer BC ==
[2021-12-25 11:35] VITALS: BMI 43.0
[2021-12-25] MEDS ORDERED: BEBTELOVIMAB (EUA) 175 MG/2 ML VIAL IVPUSH ONE (11:37)
[2021-12-25 14:01] VITALS: BP 139/83; PULSE 77; TEMP 98.8
== END 2021-12-25 14:02 | disposition home or self-care (01) ==
LOC: JER 11:12
PROC: 3E033GC Introduction of Other Therapeutic Substance into Peripheral Vein, Percutaneous Approach (ICD-10-PCS; principal; 2021-12-25)
DX: U07.1 COVID-19 (principal)
CPT/HCPCS: 99284-25; Q0222

== ENCOUNTER 2022-08-12 18:20 | Inpatient (IN) | payer BC ==
[2022-08-12 20:47] LABS: EPITHELIAL CELLS FEW /hpf
[2022-08-12] MEDS: LACTATED RINGERS SOLUTION 1,000 ML/1,000 ML INFUS.BAG IV SCH (21:00)
[2022-08-12] MEDS ORDERED: ACETAMINOPHEN 1000 MG/100 ML BAG IVPB ONE (21:09)
[2022-08-12] MEDS ORDERED: ACETAMINOPHEN INJECTION 100 ML IVPB ONE (21:10)
[2022-08-12 21:24] LABS: HEMATOCRIT 43.3 % (32.4-45.2); HEMOGLOBIN 14.8 G/dL (10.7-15.3); MCH 26.2 pg (25.7-33.7); MCHC 34.3 g/dl (32.0-36.0); MEAN CELL VOLUME 76.4 fl (80-96); MEAN PLT VOLUME 9.3 fl (7.5-11.1); PLATELET COUNT 243.7 10^3/uL (134-434); RBC 5.67 10^6/uL (3.60-5.2); RDW 15.2 % (11.6-15.6); WHITE BLOOD COUNT 12.2 10^3/uL (4.0-10.8)
[2022-08-12 21:51] LABS: CALCIUM 9.4 mg/dl (8.5-10)
[2022-08-12 21:57] LABS: CREATININE 1.2 mg/dl (0.55-1.3); TOT PROT 7.1 g/dl (6.4-8.2)
[2022-08-12] MEDS ORDERED: morphine CARPU-JECT 2 MG/1 ML DISP.SYRIN IVPUSH ONE (21:58)
[2022-08-12] MEDS ORDERED: morphine SULFATE 4 MG/ML VIAL ONE (22:00)
[2022-08-13] MEDS ORDERED: DOCUSATE SODIUM 100 MG CAPSULE (FP) PO PRN (01:37)
[2022-08-13] MEDS ORDERED: ONDANSETRON 4 MG/2 ML VIAL IVPB ONE (03:10)
[2022-08-13] MEDS: SODIUM CHLORIDE 1,000 ML IV SCH (03:27)
[2022-08-13 03:42] VITALS: BMI 46.3
[2022-08-13] MEDS ORDERED: TRIMETHOBENZAMIDE HCL 200MG/2ML INJ IM PRN (05:33)
[2022-08-13] MEDS: INSULIN SLIDING SCALE (NOVOLOG) 1 VIAL SQ SCH ×4 (07:08→21:42)
[2022-08-13 09:01] LABS: INR 1.07 (0.83-1.09); PROTHROMBIN TIME (PATIENT) 12.3 SEC (9.7-13.0)
[2022-08-13 09:15] LABS: CALCIUM 9.1 mg/dl (8.5-10); MAGNESIUM 1.9 mg/dL (1.8-2.4); PHOSPHOROUS 4.6 mg/dl (2.5-4.9)
[2022-08-13 09:18] LABS: HEMATOCRIT 38.9 % (32.4-45.2); HEMOGLOBIN 12.8 G/dL (10.7-15.3); MCH 25.3 pg (25.7-33.7); MEAN CELL VOLUME 76.9 fl (80-96); MEAN PLT VOLUME 9.7 fl (7.5-11.1); PLATELET COUNT 228.2 10^3/uL (134-434); RBC 5.06 10^6/uL (3.60-5.2); RDW 15.1 % (11.6-15.6); WHITE BLOOD COUNT 11.6 10^3/uL (4.0-10.8)
[2022-08-13] MEDS ORDERED: LOSARTAN POTASSIUM 25 MG TABLET PO SCH (10:00)
[2022-08-13] MEDS: LISINOPRIL 5 MG TABLET PO SCH (10:08)
[2022-08-13] MEDS: ASPIRIN 81 MG CHEWABLE TABLETS PO SCH (10:08)
[2022-08-13] MEDS: ENOXAPARIN NA (PORCINE) 40 MG/0.4 ML DISP.SYRIN SQ SCH (10:08)
[2022-08-13 12:00] LABS: AMYLASE 48 U/L (25-115); CHOLESTEROL 118 mg/dl (50-200); HDL CHOLESTEROL 28 mg/dl (40-60); LDL CHOLESTEROL (ONLY DFH) 45 mg/dl (5-100); TRIGLYCERIDES 225 mg/dl (0-150)
[2022-08-13] MEDS: CEFTRIAXONE 1 GM in DEXTROSE 5%-WATER - 50 ML IVPB SCH (13:16)
[2022-08-13] MEDS: ROSUVASTATIN CA 20 MG TABLET PO SCH (21:42)
[2022-08-13] MEDS: LACTATED RINGERS SOLUTION 1,000 ML/1,000 ML INFUS.BAG IV SCH (21:43)
[2022-08-14] MEDS ORDERED: ACETAMINOPHEN 325 MG TABLET (FP) PO PRN (01:37)
[2022-08-14] MEDS: SODIUM CHLORIDE 1,000 ML IV SCH (07:02)
[2022-08-14 09:16] LABS: BASO % 0.5 % (0-2.0); EOS % 7.7 % (0-4.5); HEMATOCRIT 39.8 % (32.4-45.2); HEMOGLOBIN 12.8 GM/dL (10.7-15.3); LYMPH % 32.4 % (8-40); MCH 24.7 pg (25.7-33.7); MCHC 32.3 g/dl (32.0-36.0); MEAN CELL VOLUME 76.5 fl (80-96); MEAN PLT VOLUME 9.4 fl (7.5-11.1); MONO % 7.3 % (3.8-10.2); NEUT % 52.1 % (42.8-82.8); PLATELET COUNT 209 10^3/uL (134-434); RDW 14.4 % (11.6-15.6); WHITE BLOOD COUNT 7.8 K/mm3 (4.0-10.0)
[2022-08-14] MEDS: INSULIN SLIDING SCALE (NOVOLOG) 1 VIAL SQ SCH ×4 (09:42→21:19)
[2022-08-14] MEDS: LISINOPRIL 5 MG TABLET PO SCH (09:43)
[2022-08-14] MEDS: ASPIRIN 81 MG CHEWABLE TABLETS PO SCH (09:43)
[2022-08-14] MEDS: CEFTRIAXONE 1 GM in DEXTROSE 5%-WATER - 50 ML IVPB SCH (09:44)
[2022-08-14] MEDS: ENOXAPARIN NA (PORCINE) 40 MG/0.4 ML DISP.SYRIN SQ SCH (09:44)
[2022-08-14] MEDS: ROSUVASTATIN CA 20 MG TABLET PO SCH (21:18)
[2022-08-15 06:41] VITALS: TEMP 98.2
[2022-08-15] MEDS: INSULIN SLIDING SCALE (NOVOLOG) 1 VIAL SQ SCH ×2 (06:53→10:45)
[2022-08-15 08:40] LABS: ALBUMIN 3.3 g/dl (3.4-5.0); BILIRUBIN,TOTAL 0.9 mg/dl (0.2-1); CALCIUM 8.5 mg/dl (8.5-10); CREATININE 0.9 mg/dl (0.55-1.3); TOT PROT 5.8 g/dl (6.4-8.2)
[2022-08-15 09:17] LABS: BASO % 0.8 % (0-2.0); EOS % 8.8 % (0-4.5); HEMATOCRIT 39.5 % (32.4-45.2); HEMOGLOBIN 12.7 GM/dL (10.7-15.3); LYMPH % 33.7 % (8-40); MCH 24.9 pg (25.7-33.7); MCHC 32.2 g/dl (32.0-36.0); MEAN CELL VOLUME 77.1 fl (80-96); MEAN PLT VOLUME 9.2 fl (7.5-11.1); NEUT % 49.7 % (42.8-82.8); PLATELET COUNT 217 10^3/uL (134-434); RBC 5.12 M/mm3 (3.60-5.2); RDW 14.2 % (11.6-15.6); WHITE BLOOD COUNT 6.1 K/mm3 (4.0-10.0)
[2022-08-15 09:20] VITALS: BP 129/72; PULSE 79; RESP 17
[2022-08-15] MEDS: LISINOPRIL 5 MG TABLET PO SCH (09:21)
[2022-08-15] MEDS: CEFTRIAXONE 1 GM in DEXTROSE 5%-WATER - 50 ML IVPB SCH (09:21)
[2022-08-15] MEDS: ENOXAPARIN NA (PORCINE) 40 MG/0.4 ML DISP.SYRIN SQ SCH (09:22)
[2022-08-15] MEDS: ASPIRIN 81 MG CHEWABLE TABLETS PO SCH (09:22)
== END 2022-08-15 11:06 | disposition home or self-care (01) | DRG 638 ==
LOC: FER 18:20 → FM/S 08-13 02:41
PROVIDERS: ADMIT Internal Medicine; ATTEND Nurse Practitioner Family
DX: E11.65 Type 2 diabetes mellitus with hyperglycemia (principal); Z68.42 Body mass index [BMI] 45.0-49.9, adult; E78.5 Hyperlipidemia, unspecified; I10 Essential (primary) hypertension; E66.01 Morbid (severe) obesity due to excess calories; R10.11 Right upper quadrant pain
CPT/HCPCS: 36415; 71048-TC-FY; 74178-TC; 76705-TC; 80048; 80053; 80061; 81003; 81015; 82010; 82150; 82962; 83036; 83690; 83735; 84100; 85025; 85027; 85610; 85730; 93005; 93010; 99285-25; C9803-CS; Q9967; U0003; U0005

== ENCOUNTER 2023-02-08 13:29 | Emergency (ER) | payer BC ==
[2023-02-08 13:40] VITALS: BP 117/68; PULSE 87; RESP 20; TEMP 98.7; BMI 47.0
[2023-02-08] MEDS ORDERED: KETOROLAC TROMETHAMINE 15 MG/ML VIAL IVPUSH ONE (13:57)
[2023-02-08] MEDS ORDERED: KETOROLAC TROMETHAMINE 15 MG/ML VIAL ONE (14:18)
[2023-02-08 14:39] LABS: HEMATOCRIT 44.8 % (32.4-45.2); HEMOGLOBIN 14.9 G/dL (10.7-15.3); MCH 25.9 pg (25.7-33.7); MCHC 33.3 g/dl (32.0-36.0); MEAN CELL VOLUME 77.6 fl (80-96); MEAN PLT VOLUME 10.1 fl (7.5-11.1); RBC 5.77 10^6/uL (3.60-5.2); RDW 16.6 % (11.6-15.6); WHITE BLOOD COUNT 11.1 10^3/uL (4.0-10.8)
[2023-02-08 14:58] LABS: HCG,QUALITATIVE URINE Negative
[2023-02-08 15:01] LABS: ALBUMIN 4.5 g/dl (3.4-5.0); BILIRUBIN,TOTAL 0.3 mg/dl (0.2-1); BLOOD UREA NITROGEN 12.8 mg/dl (7-18); CALCIUM 9.5 mg/dl (8.5-10.1); CREATININE 1.1 mg/dl (0.6-1.3); POTASSIUM 4.3 mmol/L (3.5-5.1); SGOT/AST 19.1 U/L (15-37); SGPT/ALT 19.5 U/L (7-52); TOT PROT 7.1 g/dl (6.4-8.2)
[2023-02-08 15:15] LABS: PLATELET ESTIMATE ADEQUATE
== END 2023-02-08 16:01 | disposition home or self-care (01) ==
LOC: FER 13:29
PROC: 3E0333Z Introduction of Anti-inflammatory into Peripheral Vein, Percutaneous Approach (ICD-10-PCS; principal; 2023-02-08)
DX: R10.9 Unspecified abdominal pain (principal)
CPT/HCPCS: 36415; 74176-TC; 80053; 81003; 84703; 85025; 87086; 99284-25

== ENCOUNTER 2024-10-24 17:47 | Inpatient (IN) | payer BC ==
[2024-10-24 17:54] VITALS: BMI 38.3
[2024-10-24] MEDS ORDERED: ACETAMINOPHEN 325 MG TABLET (FP) ONE (18:33)
[2024-10-24 18:40] LABS: ABSOLUTE IMMATURE GRANULOCYTES 0.16 x10^3/uL (0.0-0.031); BASOPHILS # 0.11 x10^3/uL (0.01-0.08); EOSINOPHIL % 1.8 % (0.7-5.8); EOSINOPHILS # 0.17 x10^3/uL (0.04-0.36); HEMATOCRIT 48.9 % (34.1-44.9); HEMOGLOBIN 15.8 g/dL (11.2-15.7); MCHC 32.3 g/dl (32.2-35.5); MEAN CELL VOLUME 81.4 fl (79.4-94.8); MEAN PLT VOLUME 10.1 fl (9.4-12.3); MONOCYTE # 0.96 x10^3/uL (0.24-0.86); MONOCYTE % 10.3 % (4.7-12.5); PLATELET COUNT 329 x10^3/uL (182-369); RDW 14.9 % (12.3-16.6)
[2024-10-24] MEDS: ACETAMINOPHEN 325 MG TABLET (FP) PO ONE (18:43)
[2024-10-24 19:08] LABS: INR 0.94 (0.83-1.09); PROTHROMBIN TIME (PATIENT) 10.3 SEC (9.7-13.0)
[2024-10-24 19:11] LABS: ACTIVATED PTT 27.4 SECONDS (25.2-36.5)
[2024-10-24 19:54] LABS: CALCIUM 9.5 mg/dL (8.5-10.1)
[2024-10-24 19:56] LABS: POTASSIUM 5.3 mmol/L (3.5-5.1)
[2024-10-24 19:57] LABS: BLOOD UREA NITROGEN 5.9 mg/dL (7-18)
[2024-10-24 19:58] LABS: CREATININE 1.6 mg/dL (0.55-1.3)
[2024-10-24 20:00] LABS: TOT PROT 7.8 g/dl (6.4-8.2)
[2024-10-24 20:03] LABS: N-TERMINAL BNP 28.6 pg/ml (5-125)
[2024-10-24] MEDS: ONDANSETRON 4 MG/2 ML VIAL IVPB ONE (22:52)
[2024-10-24] MEDS ORDERED: ONDANSETRON 4 MG/2 ML VIAL ONE (22:53)
[2024-10-25] MEDS ORDERED: ALBUTEROL SO4 0.083% IH SOL 2.5 MG/3 ML VIAL.NEB. NEB PRN (00:29)
[2024-10-25] MEDS: SODIUM CHLORIDE 1,000 ML IV STA (00:40)
[2024-10-25] MEDS: SODIUM CHLORIDE 1,000 ML IV SCH (02:00)
[2024-10-25] MEDS: HEPARIN NA (PORCINE) 5,000 UNITS/ML 1ML VIAL SQ SCH (06:25)
[2024-10-25 08:40] LABS: HEMATOCRIT 46.3 % (34.1-44.9); MCHC 32.4 g/dl (32.2-35.5); MEAN CELL VOLUME 81.2 fl (79.4-94.8); MEAN PLT VOLUME 10.9 fl (9.4-12.3); PLATELET COUNT 294 x10^3/uL (182-369); RDW 14.8 % (12.3-16.6)
[2024-10-25] MEDS: INSULIN ASPART SLIDING SCALE (NOVOLOG) 1 VIAL SQ SCH ×2 (09:06→12:07)
[2024-10-25] MEDS: ASPIRIN COATED 81 MG TABLET.EC PO SCH (09:07)
[2024-10-25 09:11] LABS: CHLORIDE 102 mmol/L (98-107); SODIUM 136 mmol/L (136-145)
[2024-10-25 09:22] LABS: CALCIUM 9.5 mg/dL (8.5-10.1)
[2024-10-25 09:23] LABS: BLOOD UREA NITROGEN 6.4 mg/dL (7-18); CO2 10 mmol/L (21-32); GLUCOSE,RANDOM 96 mg/dL (74-106)
[2024-10-25 09:36] LABS: CREATININE 1.4 mg/dL (0.55-1.3); N-TERMINAL BNP 34.4 pg/ml (5-125)
[2024-10-25 09:49] LABS: ANION GAP 24 mmol/L (4-13); POTASSIUM 2.9 mmol/L (3.5-5.1)
[2024-10-25] MEDS: POTASSIUM CHLORIDE ORAL LIQUID 20 MEQ/15 ML PO ONE (10:52)
[2024-10-25] MEDS: KCL 10 MEQ IVPB 10 MEQ/100 ML INFUS.BAG IVPB SCH (10:53)
[2024-10-25 11:37] LABS: PHOSPHOROUS 3.5 mg/dL (2.5-4.9)
[2024-10-25 12:38] LABS: MAGNESIUM 2.3 mg/dL (1.8-2.4)
[2024-10-25] MEDS: METOCLOPRAMIDE HCL INJECTION 10 MG/2 ML VIAL IVPUSH PRN (14:54)
[2024-10-25] MEDS: ATORVASTATIN CA 40 MG TABLET (FP) PO SCH (21:13)
[2024-10-25] MEDS ORDERED: INSULIN (LEVEMIR) 100 UNITS/ML UNITS SQ SCH (22:00)
[2024-10-26 09:26] LABS: POTASSIUM 3.5 mmol/L (3.5-5.1)
[2024-10-26 09:51] LABS: ALBUMIN 3.6 g/dl (3.4-5.0); BLOOD UREA NITROGEN 4.8 mg/dL (7-18)
[2024-10-26 09:52] LABS: MAGNESIUM 2.3 mg/dL (1.8-2.4)
[2024-10-26 09:53] LABS: ABSOLUTE IMMATURE GRANULOCYTES 0.11 x10^3/uL (0.0-0.031); BASOPHILS # 0.11 x10^3/uL (0.01-0.08); EOSINOPHIL % 3.1 % (0.7-5.8); EOSINOPHILS # 0.21 x10^3/uL (0.04-0.36); HEMATOCRIT 43.8 % (34.1-44.9); HEMOGLOBIN 13.9 g/dL (11.2-15.7); MCHC 31.7 g/dl (32.2-35.5); MEAN CELL VOLUME 81.3 fl (79.4-94.8); MEAN PLT VOLUME 10.8 fl (9.4-12.3); MONOCYTE # 0.74 x10^3/uL (0.24-0.86); MONOCYTE % 10.9 % (4.7-12.5); PLATELET COUNT 249 x10^3/uL (182-369); RDW 14.8 % (12.3-16.6)
[2024-10-26 09:54] LABS: CREATININE 1.3 mg/dL (0.55-1.3)
[2024-10-26 09:55] LABS: PHOSPHOROUS 2.2 mg/dL (2.5-4.9)
[2024-10-26 09:56] LABS: BILIRUBIN,TOTAL 0.6 mg/dL (0.2-1); TOT PROT 6.8 g/dl (6.4-8.2)
[2024-10-26] MEDS: POTASSIUM PHOSPHATE 15 MM in SODIUM CHLORIDE 250 ML IVPB ONE (11:16)
[2024-10-26] MEDS ORDERED: ACETAMINOPHEN 325 MG TABLET (FP) PO PRN (20:01)
[2024-10-26] MEDS: POLYETHYLENE GLYCOL (HEALTHYLAX) 3350 17 GM PACKET PO SCH (21:19)
[2024-10-27 08:36] LABS: ABSOLUTE IMMATURE GRANULOCYTES 0.09 x10^3/uL (0.0-0.031); BASOPHILS # 0.06 x10^3/uL (0.01-0.08); EOSINOPHIL % 4.2 % (0.7-5.8); EOSINOPHILS # 0.25 x10^3/uL (0.04-0.36); HEMATOCRIT 42.6 % (34.1-44.9); HEMOGLOBIN 13.9 g/dL (11.2-15.7); MCHC 32.6 g/dl (32.2-35.5); MEAN CELL VOLUME 79.8 fl (79.4-94.8); MEAN PLT VOLUME 10.8 fl (9.4-12.3); MONOCYTE # 0.51 x10^3/uL (0.24-0.86); MONOCYTE % 8.6 % (4.7-12.5); PLATELET COUNT 248 x10^3/uL (182-369); RDW 14.6 % (12.3-16.6)
[2024-10-27 09:23] LABS: CHLORIDE 106 mmol/L (98-107); SODIUM 140 mmol/L (136-145)
[2024-10-27] MEDS: AMINO ACIDS/PROTEIN HYDROLYS 30 ML LIQUID.PKT PO SCH (09:33)
[2024-10-27 09:53] LABS: BILIRUBIN,TOTAL 0.5 mg/dL (0.2-1)
[2024-10-27 09:56] LABS: CO2 16 mmol/L (21-32)
[2024-10-27 09:59] LABS: ANION GAP 18 mmol/L (4-13); POTASSIUM 2.5 mmol/L (3.5-5.1)
[2024-10-27 10:02] LABS: ALBUMIN 3.7 g/dl (3.4-5.0); CALCIUM 9.1 mg/dL (8.5-10.1); MAGNESIUM 2.1 mg/dL (1.8-2.4)
[2024-10-27 10:03] LABS: BLOOD UREA NITROGEN 2.1 mg/dL (7-18); GLUCOSE,RANDOM 100 mg/dL (74-106)
[2024-10-27 10:05] LABS: CREATININE 1.2 mg/dL (0.55-1.3); PHOSPHOROUS 2.4 mg/dL (2.5-4.9); SGOT/AST 56 U/L (15-37); SGPT/ALT 61 U/L (13-61)
[2024-10-27 10:07] LABS: TOT PROT 6.8 g/dl (6.4-8.2)
[2024-10-27 10:08] LABS: ALK PHOS 126 U/L (45-117)
[2024-10-27] MEDS: POTASSIUM CHLORIDE ORAL LIQUID 20 MEQ/15 ML PO ONE (10:56)
[2024-10-27] MEDS: KCL 10 MEQ IVPB 10 MEQ/100 ML INFUS.BAG IVPB SCH (10:56)
[2024-10-27] MEDS: SODIUM BICARBONATE 325 MG TABLET PO SCH (10:57)
[2024-10-27] MEDS: PANTOPRAZOLE 40 MG TABLET PO SCH (12:58)
[2024-10-27 14:35] LABS: GAMMA GLUTAMYL TRANSPEPTIDASE 48 U/L (5-85)
[2024-10-27] MEDS: LACTATED RINGERS SOLUTION 1,000 ML/1,000 ML INFUS.BAG IV SCH (18:45)
[2024-10-27] MEDS: ARTIFICIAL TEARS OPHTHALMIC DROPS OU PRN (19:34)
[2024-10-28 07:47] LABS: ABSOLUTE IMMATURE GRANULOCYTES 0.19 x10^3/uL (0.0-0.031); BASOPHILS # 0.08 x10^3/uL (0.01-0.08); EOSINOPHIL % 5.5 % (0.7-5.8); EOSINOPHILS # 0.29 x10^3/uL (0.04-0.36); HEMATOCRIT 39.3 % (34.1-44.9); HEMOGLOBIN 13.3 g/dL (11.2-15.7); MCHC 33.8 g/dl (32.2-35.5); MEAN CELL VOLUME 78.6 fl (79.4-94.8); MEAN PLT VOLUME 10.8 fl (9.4-12.3); MONOCYTE # 0.53 x10^3/uL (0.24-0.86); MONOCYTE % 10.1 % (4.7-12.5); PLATELET COUNT 233 x10^3/uL (182-369); RDW 14.8 % (12.3-16.6)
[2024-10-28 08:10] LABS: CHLORIDE 102 mmol/L (98-107); SODIUM 143 mmol/L (136-145)
[2024-10-28 08:12] LABS: CALCIUM 8.8 mg/dL (8.5-10.1)
[2024-10-28 08:14] LABS: ALBUMIN 3.2 g/dl (3.4-5.0); ANION GAP 16 mmol/L (4-13); BLOOD UREA NITROGEN 3.3 mg/dL (7-18); CO2 24 mmol/L (21-32); MAGNESIUM 1.7 mg/dL (1.8-2.4); POTASSIUM 2.5 mmol/L (3.5-5.1)
[2024-10-28 08:16] LABS: CREATININE 1.1 mg/dL (0.55-1.3); SGOT/AST 33 U/L (15-37)
[2024-10-28 08:18] LABS: BILIRUBIN,TOTAL 0.7 mg/dL (0.2-1); GLUCOSE,RANDOM 118 mg/dL (74-106); TOT PROT 5.9 g/dl (6.4-8.2)
[2024-10-28 08:20] LABS: ALK PHOS 112 U/L (45-117); PHOSPHOROUS 2.3 mg/dL (2.5-4.9)
[2024-10-28 08:24] LABS: CHOLESTEROL 123 mg/dL (50-200)
[2024-10-28 08:25] LABS: LDL CHOLESTEROL (ONLY SJRH) 60 mg/dL (5-100)
[2024-10-28 08:28] LABS: HDL CHOLESTEROL 38 mg/dL (40-60); SGPT/ALT 51 U/L (13-61)
[2024-10-28] MEDS: MAGNESIUM 2GM/50ML STERILE WATER IVPB IVPB ONE ×2 (09:31→18:13)
[2024-10-28] MEDS: POTASSIUM CHLORIDE ORAL LIQUID 20 MEQ/15 ML PO ONE ×2 (09:31→17:27)
[2024-10-28] MEDS: NAPH,MB-DB/K PH,MBDB POWDER PACKET PO SCH ×2 (09:31→21:21)
[2024-10-28] MEDS: KCL 20 MEQ PREMIX BAG 20 MEQ/100 ML INFUS.BAG IVPB SCH (09:48)
[2024-10-28] MEDS: KCL 10 MEQ IVPB 10 MEQ/100 ML INFUS.BAG IVPB SCH (10:33)
[2024-10-28 15:31] LABS: HCV DIAGNOSTIC IN-HOUSE W/RFLX NON-REACTIVE (NONREACTIVE)
[2024-10-28 16:13] LABS: CHLORIDE 100 mmol/L (98-107); POTASSIUM 3.2 mmol/L (3.5-5.1); SODIUM 136 mmol/L (136-145)
[2024-10-28 16:14] LABS: CALCIUM 8.7 mg/dL (8.5-10.1)
[2024-10-28 16:15] LABS: ANION GAP 11 mmol/L (4-13); CO2 25 mmol/L (21-32); GLUCOSE,RANDOM 194 mg/dL (74-106)
[2024-10-28 16:18] LABS: CREATININE 1.1 mg/dL (0.55-1.3)
[2024-10-28 16:19] LABS: BLOOD UREA NITROGEN 2.6 mg/dL (7-18)
[2024-10-28] MEDS: POTASSIUM CHLORIDE TABS 20 MEQ TABLET.ER (FP) PO SCH (16:47)
[2024-10-28] MEDS: POTASSIUM CHLORIDE TABS 20 MEQ TABLET.ER (FP) PO ONE (17:28)
[2024-10-29 05:37] LABS: EPI CELLS 18 /uL (0-25.1); HYALINE CASTS 0 /uL (0-3.1); PH,URINE 6.5 (5.0-8.0); URINE APPEARANCE CLEAR; URINE BACTERIA 318 /uL (0-1359); URINE BILIRUBIN NEGATIVE (NEGATIVE); URINE COLOR YELLOW; URINE GLUCOSE (UA) 3+ (NEGATIVE); URINE KETONE 1+ (NEGATIVE); URINE LEUK ESTERASE NEGATIVE (NEGATIVE); URINE NITRITE NEGATIVE (NEGATIVE); URINE PROTEIN 1+ (NEGATIVE); URINE RBC 11 /uL (0-23.9); URINE UROBILINOGEN 0.2 mg/dL (0.2-1.0); URINE WBC 32 /uL (0-25.8)
[2024-10-29 08:02] LABS: POTASSIUM 3.1 mmol/L (3.5-5.1)
[2024-10-29 08:17] LABS: ALBUMIN 3.2 g/dl (3.4-5.0); BLOOD UREA NITROGEN 3.3 mg/dL (7-18); CALCIUM 8.6 mg/dL (8.5-10.1); MAGNESIUM 2.4 mg/dL (1.8-2.4)
[2024-10-29 08:21] LABS: CREATININE 1.1 mg/dL (0.55-1.3); PHOSPHOROUS 2.1 mg/dL (2.5-4.9)
[2024-10-29 08:22] LABS: BILIRUBIN,TOTAL 0.7 mg/dL (0.2-1); TOT PROT 5.8 g/dl (6.4-8.2)
[2024-10-29] MEDS: POTASSIUM CHLORIDE ORAL LIQUID 20 MEQ/15 ML PO ONE (09:20)
[2024-10-29 09:45] LABS: ABSOLUTE IMMATURE GRANULOCYTES 0.29 x10^3/uL (0.0-0.031); BASOPHILS # 0.03 x10^3/uL (0.01-0.08); EOSINOPHIL % 8.9 % (0.7-5.8); HEMATOCRIT 38.6 % (34.1-44.9); MCHC 33.7 g/dl (32.2-35.5); MEAN CELL VOLUME 80.8 fl (79.4-94.8); MEAN PLT VOLUME 10.6 fl (9.4-12.3); MONOCYTE # 0.53 x10^3/uL (0.24-0.86); MONOCYTE % 9.4 % (4.7-12.5); PLATELET COUNT 212 x10^3/uL (182-369); RDW 14.9 % (12.3-16.6)
[2024-10-29] MEDS: POTASSIUM CHLORIDE TABS 20 MEQ TABLET.ER (FP) PO ONE (15:23)
[2024-10-29 16:57] LABS: POTASSIUM 3.6 mmol/L (3.5-5.1)
[2024-10-29 17:01] LABS: BLOOD UREA NITROGEN 4.8 mg/dL (7-18)
[2024-10-29 17:04] LABS: CREATININE 1.1 mg/dL (0.55-1.3)
[2024-10-30] MEDS ORDERED: INSULIN ASPART SLIDING SCALE (NOVOLOG) 1 VIAL SQ ONE (06:40)
[2024-10-30] MEDS ORDERED: INSULIN GLARGINE (LANTUS) 100 UNITS/ML UNITS SQ ONE (06:40)
[2024-10-30 07:02] VITALS: RESP 20
[2024-10-30 07:24] LABS: HEMATOCRIT 38.2 % (34.1-44.9); HEMOGLOBIN 12.5 g/dL (11.2-15.7); MCHC 32.7 g/dl (32.2-35.5); MEAN CELL VOLUME 81.1 fl (79.4-94.8); MEAN PLT VOLUME 10.1 fl (9.4-12.3); PLATELET COUNT 212 x10^3/uL (182-369); RDW 14.8 % (12.3-16.6)
[2024-10-30 07:45] LABS: POTASSIUM 3.3 mmol/L (3.5-5.1)
[2024-10-30 07:57] LABS: BILIRUBIN,TOTAL 0.6 mg/dL (0.2-1); BLOOD UREA NITROGEN 4.6 mg/dL (7-18); TOT PROT 5.7 g/dl (6.4-8.2)
[2024-10-30 07:58] LABS: ALBUMIN 3.2 g/dl (3.4-5.0); CREATININE 0.9 mg/dL (0.55-1.3)
[2024-10-30 08:00] LABS: CALCIUM 8.9 mg/dL (8.5-10.1); MAGNESIUM 2.3 mg/dL (1.8-2.4); PHOSPHOROUS 3.3 mg/dL (2.5-4.9)
[2024-10-30] MEDS: POTASSIUM CHLORIDE ORAL LIQUID 20 MEQ/15 ML PO ONE (09:07)
[2024-10-30 11:55] LABS: POTASSIUM 4.3 mmol/L (3.5-5.1)
[2024-10-30 11:59] LABS: BLOOD UREA NITROGEN 4.8 mg/dL (7-18); CALCIUM 9.5 mg/dL (8.5-10.1)
[2024-10-30 12:02] LABS: CREATININE 1.1 mg/dL (0.55-1.3)
[2024-10-30 15:14] VITALS: BP 118/88; PULSE 90; TEMP 97.7
[2024-10-31] MEDS ORDERED: NAPH,MB-DB/K PH,MBDB POWDER PACKET PO SCH (10:00)
== END 2024-10-30 18:08 | disposition home or self-care (01) | DRG 74 ==
LOC: JER 17:47 → UNDOADMOB 10-25 00:23 → JERBED 10-25 00:23 → INTOOBSV 10-25 00:29 → OBSVTOIN 10-25 00:29 → J5S 10-25 02:01 → JERBED 10-25 02:01 → J5S 10-25 14:32 → J4W 10-27 18:37 → OBSVTOIN 10-28 14:01
PROVIDERS: ADMIT Hospitalist
DX: E11.43 Type 2 diabetes mellitus with diabetic autonomic (poly)neuropathy (principal); N17.9 Acute kidney failure, unspecified; E87.20 Acidosis, unspecified; E87.1 Hypo-osmolality and hyponatremia; K31.84 Gastroparesis; R11.2 Nausea with vomiting, unspecified; T50.995A Adverse effect of other drugs, medicaments and biological substances, initial encounter; E87.6 Hypokalemia; R79.89 Other specified abnormal findings of blood chemistry; I10 Essential (primary) hypertension; G47.33 Obstructive sleep apnea (adult) (pediatric); E78.5 Hyperlipidemia, unspecified; K59.03 Drug induced constipation; E66.9 Obesity, unspecified; Z68.38 Body mass index [BMI] 38.0-38.9, adult; Z86.79 Personal history of other diseases of the circulatory system; Z98.84 Bariatric surgery status
CPT/HCPCS: 0241U-QW; 36415; 70551-TC; 71045-TC-FY; 71275-TC; 74176-TC; 76705-TC; 80048; 80053; 80061; 81003; 82010; 82024; 82533; 82550; 82962; 82977; 83036; 83690; 83735; 83880; 84100; 84133; 84439; 84443; 84460; 84484; 84703; 85025; 85027; 85610; 85730; 86704; 86708; 86803; 87340; 87517; 93005; 93010; 93306-TC; 99285-25; G0378; J1644; Q9967

== ENCOUNTER 2024-12-19 08:49 | Emergency (ER) | payer BC ==
[2024-12-19 08:55] VITALS: TEMP 98.4; BMI 41.1
[2024-12-19] MEDS ORDERED: FAMOTIDINE 20 MG TABLET ONE (09:52)
[2024-12-19] MEDS ORDERED: diphenhydrAMINE HCL 25 MG CAPSULE (FP) PO ONE (09:52)
[2024-12-19] MEDS: FAMOTIDINE 20 MG TABLET PO ONE (09:58)
[2024-12-19] MEDS: diphenhydrAMINE HCL 25 MG CAPSULE (FP) PO ONE (09:58)
[2024-12-19 12:33] VITALS: BP 110/66; PULSE 74; RESP 20
== END 2024-12-19 12:41 | disposition home or self-care (01) ==
LOC: JER 08:49
DX: R22.0 Localized swelling, mass and lump, head (principal); T78.40XA Allergy, unspecified, initial encounter; R21 Rash and other nonspecific skin eruption; L29.9 Pruritus, unspecified
CPT/HCPCS: 99283-25